=== PATIENT | male | born 1980 | race Caucasian/White ===

== ENCOUNTER 2016-10-25 04:55 | Emergency (ER) | payer OTHER ==
[~2016-10-25 04:55] MED LIST: NO MEDICATIONS
== END 2016-10-25 05:23 | disposition home or self-care (01) ==
LOC: SED 04:55
DX: K02.9 Dental caries, unspecified (principal); F17.200 Nicotine dependence, unspecified, uncomplicated; Z91.030 Bee allergy status; Z91.013 Allergy to seafood
CPT/HCPCS: 96372; 99283; J1885